=== PATIENT | female | born 1955 | race Caucasian/White ===

== ENCOUNTER → 2016-05-09 | Outpatient (CLI) | payer MEDICARE, OTHER | LOC: KOH-I 16:40 | DX: R05 Cough (principal); J98.11 Atelectasis; Z88.1 Allergy status to other antibiotic agents | CPT/HCPCS: 71020 ==

== ENCOUNTER → 2016-05-18 | Outpatient (CLI) | payer MEDICARE, OTHER | LOC: HEART 5 09:23 | DX: R06.02 Shortness of breath (principal); F17.200 Nicotine dependence, unspecified, uncomplicated | CPT/HCPCS: 94010 ==

== ENCOUNTER 2016-07-17 17:36 | Emergency (ER) | payer MEDICARE, OTHER ==
[2016-07-17 19:28] LABS: HEMOGLOBIN 13.5 gm/dl (12.3-15.3); RED BLOOD COUNT 4.65 M/UL (4.00-5.10); WHITE BLOOD COUNT 10.3 K/UL (4.5-11.0)
== END 2016-07-17 22:50 | disposition home or self-care (01) ==
LOC: ER1 17:36
PROVIDERS: Physician Assistant
DX: L03.114 Cellulitis of left upper limb (principal); E11.628 Type 2 diabetes mellitus with other skin complications; I12.9 Hypertensive chronic kidney disease with stage 1 through stage 4 chronic kidney disease, or unspecified chronic kidney disease; E11.22 Type 2 diabetes mellitus with diabetic chronic kidney disease; N18.9 Chronic kidney disease, unspecified; F17.210 Nicotine dependence, cigarettes, uncomplicated; Z88.1 Allergy status to other antibiotic agents; Z88.5 Allergy status to narcotic agent
CPT/HCPCS: 36415; 71010; 73060; 80053; 83605; 84484; 85025; 87040; 93005; 96361; 96365; 96366; 99283; J0878; J7030

== ENCOUNTER 2020-03-16 17:56 | Emergency (ER) | payer OTHER ==
[~2020-03-16 17:56] MED LIST: ALBUTEROL1.25 MG/3 INH; ALTOPREV40 MG PO; AMARYL 2MG TABLE2 MG PO; ATORVASTATIN CA20 MG PO; AUGMENTIN 500-500 MG PO; BUSPIRONE HCL15 MG PO; CARDURA1 MG PO; CELLCEPT500 MG PO; FLONASE 0.05% N16 GM; FLUZONE QU60 MCG/013 IM; GABAPENTIN300 MG PO; HABITROL 14 MG P1 EA TOP; LEXAPRO20 MG PO; NEXIUM40 MG PO; PROGRAF1 MG PO; RESTORIL 30 MG30 MG PO; SINGULAIR10 MG PO; VENTOLIN HFA 66.7 GM INH; XYZAL5 MG PO; ZYLOPRIM 100 M100 MG PO
[2020-03-16 20:06] LABS: HEMOGLOBIN 13.1 gm/dl (12.3-15.3); RED BLOOD COUNT 4.64 M/UL (4.00-5.10); WHITE BLOOD COUNT 7.9 K/UL (4.5-11.0)
[2020-03-16 20:31] LABS: BUN/CREATININE RATIO 16 (0-10)
[2020-03-16] MEDS ORDERED: OMNICEF 300 MG300 MG PO (21:53)
== END 2020-03-16 22:44 | disposition home or self-care (01) ==
LOC: ER1 17:56
PROVIDERS: Family Medicine
DX: N39.0 Urinary tract infection, site not specified (principal); J40 Bronchitis, not specified as acute or chronic; R60.0 Localized edema; R21 Rash and other nonspecific skin eruption; R05 Cough; E11.9 Type 2 diabetes mellitus without complications; J44.9 Chronic obstructive pulmonary disease, unspecified; E66.01 Morbid (severe) obesity due to excess calories; F17.200 Nicotine dependence, unspecified, uncomplicated; Z94.0 Kidney transplant status; Z87.19 Personal history of other diseases of the digestive system
CPT/HCPCS: 71045; 80053; 81001; 82550; 82553; 83605; 83874; 84484; 85025; 85610; 87040; 87077; 87086; 87186; 87205; 93005; 96374; 99283

== ENCOUNTER 2020-03-20 11:48 | Inpatient (IN) | payer OTHER ==
[~2020-03-20] VITALS: Ht 157.5 cm; Wt 79.4 kg
[~2020-03-20 11:48] MED LIST changes: +OMNICEF 300 MG300 MG PO
[2020-03-20 12:31] LABS: HEMOGLOBIN 12.3 gm/dl (12.3-15.3); RED BLOOD COUNT 4.37 M/UL (4.00-5.10); WHITE BLOOD COUNT 6.4 K/UL (4.5-11.0)
[2020-03-20 13:10] LABS: BUN/CREATININE RATIO 14 (0-10)
[2020-03-20] MEDS ORDERED: CELLCEPT500 MG PO (18:09)
[2020-03-20] MEDS ORDERED: PROGRAF0.5 MG PO (18:12)
[2020-03-21 04:51] LABS: HEMOGLOBIN 11.3 gm/dl (12.3-15.3); RED BLOOD COUNT 3.98 M/UL (4.00-5.10); WHITE BLOOD COUNT 5.4 K/UL (4.5-11.0)
[2020-03-21] MEDS ORDERED: PROGRAF0.5 MG PO (09:41)
[2020-03-21] MEDS ORDERED: MYCOPHENOLATE500 MG PO (09:42)
[2020-03-22 05:05] LABS: HEMOGLOBIN 10.9 gm/dl (12.3-15.3); RED BLOOD COUNT 3.86 M/UL (4.00-5.10); WHITE BLOOD COUNT 6.3 K/UL (4.5-11.0)
[2020-03-22] MEDS ORDERED: NEURONTIN300 MG PO (16:14)
[2020-03-23 05:05] LABS: HEMOGLOBIN 11.1 gm/dl (12.3-15.3); RED BLOOD COUNT 3.93 M/UL (4.00-5.10); WHITE BLOOD COUNT 6.7 K/UL (4.5-11.0)
[2020-03-23] MEDS ORDERED: AMOX TR-K CLV1 EAC4 PO (09:37)
[2020-03-23] MEDS ORDERED: ALBUTEROL2.5 MG/3 M NEB (09:37)
[2020-03-23] MEDS ORDERED: ZYVOX600 MG PO (09:37)
== END 2020-03-23 12:06 | disposition home or self-care (01) | DRG 178 ==
LOC: ER1 11:48 → MED SURG 4 13:32
PROVIDERS: Physician Assistant; Physician Assistant Medical; ADMIT Family Medicine
DX: J15.6 Pneumonia due to other Gram-negative bacteria (principal); Z94.0 Kidney transplant status; E87.2 Acidosis; Z16.12 Extended spectrum beta lactamase (ESBL) resistance; E87.1 Hypo-osmolality and hyponatremia; Z20.822 Contact with and (suspected) exposure to COVID-19; E11.9 Type 2 diabetes mellitus without complications; J44.9 Chronic obstructive pulmonary disease, unspecified; K21.9 Gastro-esophageal reflux disease without esophagitis; F41.9 Anxiety disorder, unspecified; F32.9 Major depressive disorder, single episode, unspecified; Z88.1 Allergy status to other antibiotic agents; Z79.899 Other long term (current) drug therapy; E66.9 Obesity, unspecified; Z87.891 Personal history of nicotine dependence; K58.9 Irritable bowel syndrome, unspecified; E86.0 Dehydration
CPT/HCPCS: 36415; 71045; 71046; 80048; 80053; 81001; 82550; 82553; 82962; 83735; 83874; 84484; 85025; 85027; 87040; 93005; 94640; 94664; 94760; 96372; 96374; 96375; 99284; J1335; J2020; J2185; J7030; U0002

== ENCOUNTER 2020-04-07 21:34 | Inpatient (IN) | payer OTHER ==
[~2020-04-07] VITALS: Ht 160 cm; Wt 79.4 kg
[~2020-04-07 21:34] MED LIST changes: +ALBUTEROL2.5 MG/3 M NEB; +AMOX TR-K CLV1 EAC4 PO; +MYCOPHENOLATE500 MG PO; +NEURONTIN300 MG PO; +PROGRAF0.5 MG PO; +ZYVOX600 MG PO
[2020-04-07 23:21] LABS: HEMOGLOBIN 10.2 gm/dl (12.3-15.3); RED BLOOD COUNT 3.74 M/UL (4.00-5.10)
[2020-04-07 23:27] LABS: BUN/CREATININE RATIO 13 (0-10)
[2020-04-08 04:28] LABS: HEMOGLOBIN 8.5 gm/dl (12.3-15.3)
[2020-04-08 04:29] LABS: RED BLOOD COUNT 3.11 M/UL (4.00-5.10)
[2020-04-08] MEDS ORDERED: FLOVENT 220 MC7.9 GM INH (10:59)
[2020-04-08] MEDS ORDERED: TYLENOL325 MG PO (10:59)
[2020-04-08] MEDS ORDERED: NOVOLOG100 UNIT/1 SQ (21:29)
[2020-04-08] MEDS ORDERED: TRESIBA FL100 UNIT/1 SQ (21:32)
[2020-04-09 07:30] LABS: RED BLOOD COUNT 3.34 M/UL (4.00-5.10); WHITE BLOOD COUNT 7.8 K/UL (4.5-11.0)
[2020-04-10 03:57] LABS: RED BLOOD COUNT 3.25 M/UL (4.00-5.10); WHITE BLOOD COUNT 7.9 K/UL (4.5-11.0)
[2020-04-11 03:40] LABS: HEMOGLOBIN 9.1 gm/dl (12.3-15.3); RED BLOOD COUNT 3.27 M/UL (4.00-5.10); WHITE BLOOD COUNT 7.8 K/UL (4.5-11.0)
[2020-04-11 20:52] LABS: HEMOGLOBIN 9.4 gm/dl (12.3-15.3); RED BLOOD COUNT 3.37 M/UL (4.00-5.10); WHITE BLOOD COUNT 8.6 K/UL (4.5-11.0)
[2020-04-12 02:59] LABS: HEMOGLOBIN 9.4 gm/dl (12.3-15.3); RED BLOOD COUNT 3.38 M/UL (4.00-5.10); WHITE BLOOD COUNT 7.1 K/UL (4.5-11.0)
[2020-04-13 06:43] LABS: HEMOGLOBIN 8.5 gm/dl (12.3-15.3); RED BLOOD COUNT 3.1 M/UL (4.00-5.10); WHITE BLOOD COUNT 10.3 K/UL (4.5-11.0)
[2020-04-13] MEDS ORDERED: MONUROL3 GM PO (09:32)
[2020-04-13] MEDS ORDERED: FLUZONE QU60 MCG/018 IM (09:32)
== END 2020-04-13 14:55 | disposition home or self-care (01) | DRG 699 ==
LOC: ER1 21:34 → CDU 04-08 01:54 → MED SURG 4 04-08 01:54
PROVIDERS: Hospitalist; Internal Medicine; Internal Medicine Nephrology; Physician Assistant; ADMIT Family Medicine
DX: T86.12 Kidney transplant failure (principal); N17.9 Acute kidney failure, unspecified; N39.0 Urinary tract infection, site not specified; Z94.0 Kidney transplant status; E11.22 Type 2 diabetes mellitus with diabetic chronic kidney disease; I12.9 Hypertensive chronic kidney disease with stage 1 through stage 4 chronic kidney disease, or unspecified chronic kidney disease; N18.30 Chronic kidney disease, stage 3 unspecified; E87.6 Hypokalemia; Z20.822 Contact with and (suspected) exposure to COVID-19; Z88.1 Allergy status to other antibiotic agents; E86.0 Dehydration; M19.90 Unspecified osteoarthritis, unspecified site; M10.9 Gout, unspecified
CPT/HCPCS: 36415; 71045; 73560; 78580; 80048; 80053; 80197; 81001; 82550; 82553; 82962; 83605; 83874; 84133; 84300; 84484; 84550; 85007; 85025; 85027; 85379; 87040; 87086; 89050; 90471; 93005; 94640; 94664; 94760; 96372; 96374; 96375; 96376; 97116-GP-CQ; 97162; 97530-GP-CQ; 99284; A9540; J1335; J2930; J7030; P9047; U0002

== ENCOUNTER 2020-06-13 17:28 | Inpatient (IN) | payer OTHER ==
[~2020-06-13] VITALS: Ht 157.5 cm; Wt 79.1 kg
[~2020-06-13 17:28] MED LIST changes: +FLOVENT 220 MC7.9 GM INH; +FLUZONE QU60 MCG/018 IM; +MONUROL3 GM PO; +NOVOLOG100 UNIT/1 SQ; +TRESIBA FL100 UNIT/1 SQ; +TYLENOL325 MG PO
[2020-06-13 19:11] LABS: HEMOGLOBIN 10.6 gm/dl (12.3-15.3); RED BLOOD COUNT 3.76 M/UL (4.00-5.10)
[2020-06-13 19:12] LABS: WHITE BLOOD COUNT 6.3 K/UL (4.5-11.0)
[2020-06-14] MEDS ORDERED: CELLCEPT500 MG PO (00:20)
[2020-06-14 04:22] LABS: HEMOGLOBIN 9.8 gm/dl (12.3-15.3); RED BLOOD COUNT 3.49 M/UL (4.00-5.10); WHITE BLOOD COUNT 5.4 K/UL (4.5-11.0)
[2020-06-15 08:07] LABS: HEMOGLOBIN 8.4 gm/dl (12.3-15.3)
[2020-06-15 08:14] LABS: RED BLOOD COUNT 3.04 M/UL (4.00-5.10); WHITE BLOOD COUNT 2.9 K/UL (4.5-11.0)
[2020-06-16 09:20] LABS: HEMOGLOBIN 8.6 gm/dl (12.3-15.3); RED BLOOD COUNT 3.06 M/UL (4.00-5.10)
[2020-06-16 09:21] LABS: WHITE BLOOD COUNT 5.6 K/UL (4.5-11.0)
[2020-06-16 13:14] LABS: ORGANISM ID Not indicated. (.); SPECIMEN SOURCE Urine (.); STREPTOCOCCUS PNEUMONIAE AG Negative (Negative)
[2020-06-17 05:54] LABS: HEMOGLOBIN 8.9 gm/dl (12.3-15.3); RED BLOOD COUNT 3.17 M/UL (4.00-5.10); WHITE BLOOD COUNT 4.9 K/UL (4.5-11.0)
[2020-06-18 04:40] LABS: HEMOGLOBIN 9.2 gm/dl (12.3-15.3); RED BLOOD COUNT 3.32 M/UL (4.00-5.10); WHITE BLOOD COUNT 5.2 K/UL (4.5-11.0)
[2020-06-19 04:50] LABS: HEMOGLOBIN 10.5 gm/dl (12.3-15.3)
[2020-06-19 05:14] LABS: RED BLOOD COUNT 3.78 M/UL (4.00-5.10); WHITE BLOOD COUNT 12.4 K/UL (4.5-11.0)
[2020-06-20 05:33] LABS: HEMOGLOBIN 8.6 gm/dl (12.3-15.3)
[2020-06-20 05:50] LABS: RED BLOOD COUNT 3.11 M/UL (4.00-5.10); WHITE BLOOD COUNT 6.4 K/UL (4.5-11.0)
[2020-06-21 04:11] LABS: HEMOGLOBIN 9.1 gm/dl (12.3-15.3); RED BLOOD COUNT 3.3 M/UL (4.00-5.10); WHITE BLOOD COUNT 6.2 K/UL (4.5-11.0)
[2020-06-22 10:21] LABS: HEMOGLOBIN 8.4 gm/dl (12.3-15.3); RED BLOOD COUNT 3.06 M/UL (4.00-5.10); WHITE BLOOD COUNT 6.1 K/UL (4.5-11.0)
[2020-06-23 07:03] LABS: HEMOGLOBIN 8.4 gm/dl (12.3-15.3); RED BLOOD COUNT 3.02 M/UL (4.00-5.10); WHITE BLOOD COUNT 5.8 K/UL (4.5-11.0)
[2020-06-24 05:14] LABS: RED BLOOD COUNT 3.22 M/UL (4.00-5.10); WHITE BLOOD COUNT 5.7 K/UL (4.5-11.0)
[2020-06-25 04:43] LABS: HEMOGLOBIN 8.7 gm/dl (12.3-15.3); RED BLOOD COUNT 3.11 M/UL (4.00-5.10); WHITE BLOOD COUNT 4.9 K/UL (4.5-11.0)
[2020-06-26 04:30] LABS: RED BLOOD COUNT 3.21 M/UL (4.00-5.10); WHITE BLOOD COUNT 5.2 K/UL (4.5-11.0)
[2020-06-27 05:23] LABS: HEMOGLOBIN 9.5 gm/dl (12.3-15.3); RED BLOOD COUNT 3.37 M/UL (4.00-5.10); WHITE BLOOD COUNT 5.2 K/UL (4.5-11.0)
[2020-06-28 05:33] LABS: HEMOGLOBIN 9.3 gm/dl (12.3-15.3); RED BLOOD COUNT 3.32 M/UL (4.00-5.10)
[2020-06-28 05:50] LABS: WHITE BLOOD COUNT 7.8 K/UL (4.5-11.0)
[2020-06-28 22:09] LABS: ACINETOBACTER BAUMANNII Not Detected (Negative); CANDIDA ALBICANS Not Detected (Negative); CANDIDA KRUSEI Not Detected (Negative); CANDIDA TROPICALIS Not Detected (Negative); ENTEROCOCCUS Not Detected (Negative); ESCHERICHIA COLI Not Detected (Negative); HAEMOPHILUS INFLUENZAE Not Detected (Negative); KLEBSIELLA OXYTOCA Not Detected (Negative); KLEBSIELLA PNEUMONIAE Not Detected (Negative); KPC-CARBAPENEM-RESISTANCE GENE Not Detected (Negative); PROTEUS Not Detected (Negative); PSEUDOMONAS AERUGINOSA Not Detected (Negative); SERRATIA MARCESANS Not Detected (Negative); STAPHYLOCOCCUS AUREUS Not Detected (Negative); STREP AGALACTIAE (GROUP B) Not Detected (Negative); STREP PYOGENES (GROUP A) Not Detected (Negative); STREPTOCOCCUS Not Detected (Negative); vanA/B (VANCOMYCIN RESIST GENE Not Detected (Negative)
[2020-06-29 00:05] LABS: STAPHYLOCOCCUS DETECTED (Negative); mecA (METHICILLIN RESIST GENE DETECTED (Negative)
[2020-06-29 04:15] LABS: HEMOGLOBIN 8.8 gm/dl (12.3-15.3); RED BLOOD COUNT 3.17 M/UL (4.00-5.10); WHITE BLOOD COUNT 9.1 K/UL (4.5-11.0)
--- NOTE | 2020-06-30 00:26 | NUR ---
PATIENT CONTINUES TO BREATH OVER THE VENTILATOR AT 40 TIMES A MINUTE. SEDATION HAS BEEN INCREASED MULTIPLE TIMES (SEE FLOWSHEET) TO DECREASE THE HIGH RESPIRATORY RATE AND ALLOW THE PATIENT TO BE MORE RELAXED. WILL CONTINUE TO MONITOR.
--- NOTE | 2020-06-30 01:40 | NUR ---
PATIENT RESPIRATIONS REMAINS HIGH, CONTINUES TO BE ASYNCHRONOUS WITH THE VENTIALTOR. DR. BRADLEY NOTIFIED. ORDERED FENTANYL TO BE RESTARTED.
[2020-06-30 05:19] LABS: HEMOGLOBIN 9.3 gm/dl (12.3-15.3); RED BLOOD COUNT 3.25 M/UL (4.00-5.10); WHITE BLOOD COUNT 8.5 K/UL (4.5-11.0)
[2020-07-01 03:09] LABS: HEMOGLOBIN 9.2 gm/dl (12.3-15.3); RED BLOOD COUNT 3.24 M/UL (4.00-5.10); WHITE BLOOD COUNT 8.3 K/UL (4.5-11.0)
[2020-07-02 07:20] LABS: RED BLOOD COUNT 3.26 M/UL (4.00-5.10)
[2020-07-02 07:21] LABS: WHITE BLOOD COUNT 11.9 K/UL (4.5-11.0)
[2020-07-03 04:42] LABS: HEMOGLOBIN 8.5 gm/dl (12.3-15.3); RED BLOOD COUNT 2.99 M/UL (4.00-5.10)
[2020-07-03 04:44] LABS: WHITE BLOOD COUNT 8.8 K/UL (4.5-11.0)
--- NOTE | 2020-07-03 13:22 | NUR ---
07/02/20 PATIENT'S WATCH AND GLASSES SENT HOME WITH
[2020-07-04 05:00] LABS: HEMOGLOBIN 8.1 gm/dl (12.3-15.3); RED BLOOD COUNT 2.86 M/UL (4.00-5.10); WHITE BLOOD COUNT 6.6 K/UL (4.5-11.0)
[2020-07-04 14:42] LABS: HEMOGLOBIN 9.8 gm/dl (12.3-15.3)
[2020-07-04 14:44] LABS: RED BLOOD COUNT 3.44 M/UL (4.00-5.10); WHITE BLOOD COUNT 10.2 K/UL (4.5-11.0)
[2020-07-05 06:33] LABS: HEMOGLOBIN 8.9 gm/dl (12.3-15.3); WHITE BLOOD COUNT 11.1 K/UL (4.5-11.0)
[2020-07-05 06:37] LABS: RED BLOOD COUNT 3.09 M/UL (4.00-5.10)
[2020-07-06 05:31] LABS: HEMOGLOBIN 8.3 gm/dl (12.3-15.3); RED BLOOD COUNT 2.96 M/UL (4.00-5.10); WHITE BLOOD COUNT 10.8 K/UL (4.5-11.0)
[2020-07-07 07:38] LABS: HEMOGLOBIN 7.9 gm/dl (12.3-15.3); RED BLOOD COUNT 2.79 M/UL (4.00-5.10)
[2020-07-07 07:49] LABS: WHITE BLOOD COUNT 7.1 K/UL (4.5-11.0)
[2020-07-08 05:09] LABS: HEMOGLOBIN 7.3 gm/dl (12.3-15.3); RED BLOOD COUNT 2.56 M/UL (4.00-5.10); WHITE BLOOD COUNT 6.8 K/UL (4.5-11.0)
== END 2020-07-08 23:20 | disposition expired | DRG 4 ==
LOC: ER1 17:28 → CDU 20:47 → CCU 20:47
PROVIDERS: Emergency Medicine; Internal Medicine; Internal Medicine Nephrology; Internal Medicine Pulmonary Disease; Surgery; ADMIT Family Medicine
PROC: XW033E5 Introduction of Remdesivir Anti-infective into Peripheral Vein, Percutaneous Approach, New Technology Group 5 (ICD-10-PCS; 2020-06-13)
PROC: XW13325 Transfusion of Convalescent Plasma (Nonautologous) into Peripheral Vein, Percutaneous Approach, New Technology Group 5 (ICD-10-PCS; 2020-06-13)
PROC: 3E0333Z Introduction of Anti-inflammatory into Peripheral Vein, Percutaneous Approach (ICD-10-PCS; 2020-06-13)
PROC: 8E0ZXY6 Isolation (ICD-10-PCS; 2020-06-13)
PROC: 5A0955A Assistance with Respiratory Ventilation, Greater than 96 Consecutive Hours, High Flow/Velocity Cannula (ICD-10-PCS; 2020-06-13)
PROC: B24BZZ4 Ultrasonography of Heart with Aorta, Transesophageal (ICD-10-PCS; 2020-06-14)
PROC: 0BH17EZ Insertion of Endotracheal Airway into Trachea, Via Natural or Artificial Opening (ICD-10-PCS; 2020-06-19)
PROC: 02HV33Z Insertion of Infusion Device into Superior Vena Cava, Percutaneous Approach (ICD-10-PCS; 2020-06-27)
PROC: 5A1955Z Respiratory Ventilation, Greater than 96 Consecutive Hours (ICD-10-PCS; 2020-07-05)
PROC: 0DH63UZ Insertion of Feeding Device into Stomach, Percutaneous Approach (ICD-10-PCS; 2020-07-05)
PROC: 0BJ08ZZ Inspection of Tracheobronchial Tree, Via Natural or Artificial Opening Endoscopic (ICD-10-PCS; 2020-07-05)
PROC: 0DJ08ZZ Inspection of Upper Intestinal Tract, Via Natural or Artificial Opening Endoscopic (ICD-10-PCS; 2020-07-05)
PROC: 0B113F4 Bypass Trachea to Cutaneous with Tracheostomy Device, Percutaneous Approach (ICD-10-PCS; principal; 2020-07-05 12:15)
DX: U07.1 COVID-19 (principal); A41.89 Other specified sepsis; J12.82 Pneumonia due to coronavirus disease 2019; J15.6 Pneumonia due to other Gram-negative bacteria; J80 Acute respiratory distress syndrome; I21.A1 Myocardial infarction type 2; E43 Unspecified severe protein-calorie malnutrition; I61.9 Nontraumatic intracerebral hemorrhage, unspecified; G92 Toxic encephalopathy; R65.21 Severe sepsis with septic shock; Z94.0 Kidney transplant status; D84.9 Immunodeficiency, unspecified; I48.20 Chronic atrial fibrillation, unspecified; N18.4 Chronic kidney disease, stage 4 (severe); J44.1 Chronic obstructive pulmonary disease with (acute) exacerbation; J44.0 Chronic obstructive pulmonary disease with (acute) lower respiratory infection; G93.49 Other encephalopathy; T86.19 Other complication of kidney transplant; E87.2 Acidosis; I82.4Z3 Acute embolism and thrombosis of unspecified deep veins of distal lower extremity, bilateral; I13.0 Hypertensive heart and chronic kidney disease with heart failure and stage 1 through stage 4 chronic kidney disease, or unspecified chronic kidney disease; G93.1 Anoxic brain damage, not elsewhere classified; I31.3 Pericardial effusion (noninflammatory); D61.818 Other pancytopenia; E87.1 Hypo-osmolality and hyponatremia; E87.3 Alkalosis; I47.2 Ventricular tachycardia; Z99.11 Dependence on respirator [ventilator] status; Y83.8 Other surgical procedures as the cause of abnormal reaction of the patient, or of later complication, without mention of misadventure at the time of the procedure; F17.210 Nicotine dependence, cigarettes, uncomplicated; E78.5 Hyperlipidemia, unspecified; E87.70 Fluid overload, unspecified; F32.9 Major depressive disorder, single episode, unspecified; E66.9 Obesity, unspecified; I50.9 Heart failure, unspecified; D63.1 Anemia in chronic kidney disease; F10.10 Alcohol abuse, uncomplicated; E11.22 Type 2 diabetes mellitus with diabetic chronic kidney disease; I27.20 Pulmonary hypertension, unspecified; D75.82 Heparin induced thrombocytopenia (HIT); I08.1 Rheumatic disorders of both mitral and tricuspid valves; T45.515A Adverse effect of anticoagulants, initial encounter; F41.9 Anxiety disorder, unspecified; K21.9 Gastro-esophageal reflux disease without esophagitis; E87.6 Hypokalemia; E11.65 Type 2 diabetes mellitus with hyperglycemia; E87.5 Hyperkalemia; L89.152 Pressure ulcer of sacral region, stage 2; E11.649 Type 2 diabetes mellitus with hypoglycemia without coma; K94.21 Gastrostomy hemorrhage; Z79.4 Long term (current) use of insulin; Z98.42 Cataract extraction status, left eye; Z98.41 Cataract extraction status, right eye; Z88.1 Allergy status to other antibiotic agents; Z83.3 Family history of diabetes mellitus; Z80.9 Family history of malignant neoplasm, unspecified; Z82.49 Family history of ischemic heart disease and other diseases of the circulatory system; I25.2 Old myocardial infarction; Z79.01 Long term (current) use of anticoagulants; Z86.718 Personal history of other venous thrombosis and embolism; Z68.31 Body mass index [BMI] 31.0-31.9, adult; Z86.16 Personal history of COVID-19
CPT/HCPCS: ECHO; 31500; 36415; 36600; 51702; 70450; 71045; 71250; 80048; 80053; 80197; 81001; 82140; 82550; 82553; 82570; 82728; 82803; 82962; 83605; 83615; 83690; 83735; 83874; 83880; 84100; 84132; 84156; 84484; 85025; 85027; 85362; 85379; 85384; 85610; 85730; 86140; 86900; 86901; 86927; 87040; 87070; 87077; 87081; 87086; 87150; 87186; 87205; 87278; 87899; 93005; 93306; 93308; 93925; 93970; 94002; 94003; 94640; 94664; 94760; 99285; A6212; C1751; C1769; C9113; J0171; J0360; J0461; J0696; J1100; J1120; J1205; J1644; J1650; J1940; J2020; J2185; J2248; J2250; J2405; J2543; J2704; J3010; J3475; J3480; J7030; J7040; J7050; J7120; J7507; J7517; P9047; U0002